=== PATIENT | female | born 1995 | race Caucasian/White ===

== ENCOUNTER 2018-04-26 23:19 | Emergency (ER) | payer OTHER, MEDICAID ==
[2018-04-26] MEDS ORDERED: MAGNESIUM HYDROXIDE/AL HYDROX 30 ML, LIDOCAINE VISC 2% 15ML 15 ML PO ONE ×2 (23:27)
[2018-04-26] MEDS ORDERED: HYOSCYAMINE SULFATE ODT 0.125 MG TAB.SUBL SL ONE (23:27)
[2018-04-26] MEDS ORDERED: 0.9 % SODIUM CHLORIDE 1000ML 1,000 ML IV SCH (23:30)
--- NOTE | 2018-04-26 23:32 | Emergency Department Record ---
History of Present Illness - General Chief Complaint: Abdominal Pain Stated Complaint: ABDOMINAL PAIN Time Seen by Provider: 04/26/18 23:27 Source: Patient Mode of Arrival: Ambulatory Limitations: No limitations - History of Present Illness Initial Comments: 22 yo female presents to ED for evaluation of epigastric pain symptoms that began after eating approximately 3 hours ago. Patient reports nausea without vomiting, reports that the pain symptoms radiate to her back. Patient reports taking ant-acid medication that did not improve her symptoms. Patient denies fevers, chills, or recent illness. Patient denies health problems at her baseline, and denies previous abdominal surgery other than . MD Complaint: Abdominal pain Onset/Timin -: Hour(s) Radiation: Back Severity: Moderate Quality: Sharp, Stabbing Consistency: Constant Improves With: Nothing Worsens With: Nothing Associated Symptoms: Nausea - Related Data Previous Rx's Medication Instructions Recorded Sucralfate [Carafate] 1 g PO QID #60 [facility] 04/27/18 Allergies Allergy/AdvReac Type Severity Reaction Status Date / Time No Known Drug Allergies Allergy Verified 02/25/16 14:32 Review of Systems Constitutional: Denies: Chills, Fever, Malaise, Night sweats Eyes: Denies: Eye discharge, Eye pain ENT: Denies: Congestion, Ear pain, Epistaxis Respiratory: Denies: Cough, Dyspnea Cardiovascular: Denies: Chest pain, Dyspnea on exertion Endocrine: Denies: Fatigue, Heat or cold intolerance Gastrointestinal: Reports: Abdominal pain, Nausea. Denies: Vomiting Genitourinary: Denies: Incontinence, Retention Musculoskeletal: Reports: Back pain. Denies: Arthralgia Skin: Denies: Bruising, Change in color, Change in hair/nails Neurological: Denies: Abnormal gait, Confusion, Headache, Seizure Psychiatric: Denies: Anxiety Hematological/Lymphatic: Denies: Anemia, Blood Clots Past Medical History - SOCIAL HISTORY Smoking Status: Former smoker - RESPIRATORY Hx Respiratory Disorders: Yes Hx Asthma: Yes - CARDIOVASCULAR Hx Cardio Disorders: No - NEURO Hx Neuro Disorders: Yes Hx Headaches: Yes - GI Hx GI Disorders: No - Hx Genitourinary Disorders: No - ENDOCRINE Hx Endocrine Disorders: No Hx Diabetes: No Hx Thyroid Disease: No - MUSCULOSKELETAL Hx Musculoskeletal Disorders: No - PSYCH Hx Psych Problems: No - HEMATOLOGY/ONCOLOGY Hx Hematology/Oncology Disorders: No Family Medical History Hx Cancer: Grandparents Hx Heart Disease: Grandparents Hx HTN: Father, Brother/Sister Physical Exam - General General Appearance: Alert, Oriented x3, Cooperative, Moderate distress Limitations: No limitations - Head Head exam: Atraumatic, Normocephalic, Normal inspection Head exam detail: negative: Abrasion, Contusion, Phelps's sign, General tenderness, Hematoma, Laceration - Eye Eye exam: Normal appearance. negative: Conjunctival injection, Periorbital swelling, Periorbital tenderness, Scleral icterus - ENT Ear exam: negative: Auricular hematoma, Auricular trauma Nasal Exam: negative: Active bleeding, Discharge, Dried blood, Foreign body Mouth exam: negative: Drooling, Laceration, Muffled voice, Tongue elevation - Neck Neck exam: Normal inspection. negative: Meningismus, Tenderness - Respiratory Respiratory exam: Normal lung sounds bilaterally. negative: Rales, Respiratory distress, Rhonchi, Stridor - Cardiovascular Cardiovascular Exam: Regular rate, Normal rhythm, Normal heart sounds - GI/Abdominal GI/Abdominal exam: Soft, Tenderness (TTP epigastric region, no rebound, no guarding symptoms are present. No pain to the RUQ on examination.). negative: Rebound, Rigid - Rectal Rectal exam: Deferred - exam: Deferred - Extremities Extremities exam: Normal inspection. negative: Pedal edema, Tenderness - Back Back exam: Denies: CVA tenderness (R), CVA tenderness (L) - Neurological Neurological exam: Alert, Normal gait, Oriented X3 - Psychiatric Psychiatric exam: Normal affect, Normal mood - Skin Skin exam: Normal color. negative: Abrasion Type of lesion: negative: abrasion Course Vital Signs 04/26/18 23:24 Temperature 98.2 F Pulse Rate [ 90 Pulse Ox Probe] Respiratory 20 Rate Blood Pressure 131/93 [Left Arm] Pulse Ox 96 - Reevaluation(s) Reevaluation #1: 04/27/18 00:07 Laboratory studies were reviewed and are grossly unremarkable for an acute process. Reevaluation #2: 04/27/18 00:16 Patient was updated on all results, reports that her symptoms are improved from 03/22 to 08/22. Patient's repeat abdominal examination does not demonstrate any acute surgical process, and CT imaging at this time does not appear indicated. Will treat with Carafate as needed with instructions to follow-up with her PCP in 1-3 days as directed. Medical Decision Making - Lab Data Result diagrams: 04/26/18 23:36 04/26/18 23:36 Disposition Disposition: Discharge Clinical Impression: Epigastric abdominal pain Disposition: Home, Self-Care Condition: (2) Stable Instructions: Abdominal Pain (ED) Additional Instructions: Return to ED if your symptoms worsen or if you have any concerns. Carafate as directed. Follow-up with your family doctor in 1-3 days as directed. Prescriptions: Sucralfate [Carafate] 1 g PO QID #60 [facility] [place] Forms: Patient Portal Access Time of Disposition: 00:17 Quality - Quality Measures Quality Measures: N/A - Blood Pressure Screening Does Patient Have Any of the Following: No Blood Pressure Classification: Hypertensive Reading Systolic Measurement: 131 Diastolic Measurement: 93 Screening for High Blood Pressure: < First Hypertensive BP, F/U Documented > [ [id number]] First Hypertensive Follow-up Interventions: Referral to alternative/primary care provider.
[2018-04-26 23:47] LABS: HCG,QUALITATIVE URINE NEGATIVE (NEGATIVE); URINE APPEARANCE CLEAR; URINE BILIRUBIN NEGATIVE (NEGATIVE); URINE BLOOD NEGATIVE (NEGATIVE); URINE COLOR YELLOW; URINE GLUCOSE (UA) NEGATIVE (NEGATIVE); URINE KETONE NEGATIVE (NEGATIVE); URINE LEUKOCYTE ESTERASE NEGATIVE (NEGATIVE); URINE NITRITE NEGATIVE (NEGATIVE); URINE PROTEIN NEGATIVE (NEGATIVE); URINE UROBILINOGEN 0.2 E.U./dL (0.20 - 1.00)
[2018-04-26 23:49] LABS: BASO % 0.6 % (0-6); EOS % 2.9 % (0-6); GRAN % 65.4 % (47-80); HEMATOCRIT 42.6 % (35.0-47.0); HEMOGLOBIN 14.1 gm/dl (11.6-16.0); LYMPH % 21.1 % (16-45); MEAN CELL VOLUME 88.6 fl (81-97); MEAN CORPUSCULAR HEMOGLOBIN 29.3 pg (27-33); MEAN CORPUSCULAR HGB CONC 33.1 g/dl (32-36); MEAN PLATELET VOLUME 10.2 fl (7.4-10.4); PLATELET COUNT 298 K/uL (130-400); RED BLOOD COUNT 4.81 M/uL (3.80-5.40); RED CELL DISTRIBUTION WIDTH 12.9 % (11.5-14.5); WHITE BLOOD COUNT W/O DIFF 12.2 K/uL (4.2-12.2)
[2018-04-26 23:59] LABS: BLOOD UREA NITROGEN 12 mg/dL (6-20); CREATININE 0.8 mg/dL (0.5-0.9); EST GLOMERULAR FILTRATION RATE > 60 mL/min
[2018-04-27] LABS: TOTAL PROTEIN 7.6 g/dL (6.6-8.7)
[2018-04-27 00:02] LABS: GLUCOSE,RANDOM 109 mg/dL (74-109)
[2018-04-27 00:04] LABS: ALT/SGPT 17 U/L (<33)
[2018-04-27 00:05] LABS: ALB/GLOB RATIO 1.4 (1.1-1.8); ALBUMIN 4.4 g/dL (4.0-5.0); ALKALINE PHOSPHATASE 90 U/L (35-104); AST/SGOT 18 U/L (10.0-35.0); LIPASE 26 U/L (13-60)
== END 2018-04-27 00:25 | disposition home or self-care (01) ==
LOC: ER 23:19
DX: R10.13 Epigastric pain (principal); R11.0 Nausea; F17.210 Nicotine dependence, cigarettes, uncomplicated
CPT/HCPCS: 99284 ×2; 83690; 85025; 80053; 81003; 81025; J1980; J7030